=== PATIENT | female | born 1950 | race African-American/Black ===

== ENCOUNTER 2022-07-07 15:55 | Emergency (ER) | payer MEDICARE ==
[~2022-07-07] VITALS: Ht 167.6 cm; Wt 93.0 kg
[2022-07-07] MEDS ORDERED: ACETAMINOPHEN 325MG TABLET PO STA (16:51)
[2022-07-07] MEDS ORDERED: SODIUM CHLORIDE 0.9% 1,000 ML IV ONE (17:00)
[2022-07-07 17:54] LABS: BASOPHILS % 1.2 % (0.0-2.0); EOSINOPHILS % 7.1 % (0.0-5.0); HEMATOCRIT. 36.4 % (36.0-48.0); HEMOGLOBIN. 12.4 g/dL (12.0-16.0); LYMPHOCYTES % 23.6 % (20.0-50.0); MEAN CORPUSCULAR HEMOGLOBIN 32.1 pg (28.0-32.0); MEAN CORPUSCULAR VOLUME 93.9 fL (81.0-99.0); MEAN PLATELET VOLUME 9.3 fl (7.4-10.4); MONOCYTES % 10.3 % (2.0-8.0); NEUTROPHILS % 57.8 % (40.0-76.0); PLATELET 288 x1000/uL (130-400); RED BLOOD CELL COUNT 3.87 mill/uL (4.2-5.4); RED CELL DISTRIBUTION WIDTH 13.4 % (11.6-14.6)
[2022-07-07 17:59] LABS: CHLORIDE 104 mEq/L (98-107)
[2022-07-07 18:01] LABS: PROTHROMBIN TIME 10.4 sec (9.6-11.0)
[2022-07-07 18:02] LABS: CLARITY URINE CLEAR (CLEAR); COLOR URINE YELLOW (YELLOW); KETONES URINE NEGATIVE (NEGATIVE); LEUKOCYTE ESTERASE URINE 1+ (NEGATIVE); NITRITE URINE NEGATIVE (NEGATIVE); OCCULT BLOOD URINE NEGATIVE (NEGATIVE); PROTEIN URINE 1+ (NEGATIVE); SPECIFIC GRAVITY URINE 1.017 (1.005-1.030); UROBILINOGEN URINE 0.2 E.U./dL (0.2-1.0)
[2022-07-07 20:03] VITALS: BP 161/69
== END 2022-07-07 20:58 | disposition left against medical advice (07) ==
LOC: ER 15:55 → EDBEDREQ 17:05 → ER 20:58 → CANBEDREQ 07-08 21:05
DX: I24.9 Acute ischemic heart disease, unspecified (principal); I10 Essential (primary) hypertension; R07.81 Pleurodynia; E11.9 Type 2 diabetes mellitus without complications; Z98.890 Other specified postprocedural states; W01.0XXA Fall on same level from slipping, tripping and stumbling without subsequent striking against object, initial encounter; Y93.89 Activity, other specified; Y92.89 Other specified places as the place of occurrence of the external cause; Y99.8 Other external cause status
CPT/HCPCS: 36415; 70450; 71250; 72170; 80053; 81003; 84484; 85025; 85610; 93005; 96360; 96361; 99285; J7030